=== PATIENT | female | born 2000 | race Caucasian/White ===

== ENCOUNTER 2025-04-18 09:12 | Outpatient (CLI) | payer BC, SELFPAY ==
--- OUTSIDE RECORDS SUMMARY | 2025-04-18 09:19 | XMS_ITS | Patient Health Record ---
Author Organization [facility] Address [address] [place] [address] Support Name Relationship Address Phone LISSETTE MERCER Emergency Contact Unknown JAMES MERCER Guarantor Unknown [phone] Reason For Referral No Information Medications Medication SIG (Take, Route, Frequency, Duration) Notes Start Date End Date Status Methylphenidate HCl ER 18 MG Oral 10/06/2023 Active ZAKIA FE 10/01 (28) 1 MG-20 MCG (21)/75 MG (7) TABLET *Reorder from JIT Solaire for eRx and Interaction Alerts* 10/06/2023 Active Methylphenidate HCl ER 27 MG Oral 10/06/2023 Active Plan Of Treatment No Information Insurance Providers Payer Name Payer Address Payer Phone Subscriber Number Group Number Insured Name Patient Relationship to Insured Coverage Start Date Coverage End Date [employer] [employer] [address] [place] [address] [id number] FN JEAN MERCER
--- OUTSIDE RECORDS SUMMARY | 2025-04-18 09:19 | XMS_ITS | Clinical Summary ---
Author Organization [facility] Address [address] [place] [address] Care Team Providers Care Auto Club Safety Program Coordinator Name Role Phone Unavailable Primary Care Provider Unavailabl e Social History Tobacco Use Types Packs/Day Years Used Date Smoking Tobacco: Never Assessed Comments Unknown Sex and Gender Information Value Date Recorded Sex Assigned at Not on file Legal Sex Female 1:24 PM PHOTORESIST CONTACT PRINTER Gender Identity Not on file Sexual Orientation Not on file Plan of Treatment Health Maintenance Due Date Last Done Comments Cervical Cancer Screening Pa p Smear (Age 21 to 29) Every 3 Years 2002 Cervical Cancer Screening 2002 Annual Physical 2005 HPV Vaccines (1 - 3-dose series) 2017 Meningococcal B Vaccine (1 o f 2 - Standard) 2018 Hepatitis C 2020 DTaP, Tdap and Td Vaccines ( 1 - Tdap) 2021 Hepatitis B Vaccines (1 of 3 - 19+ 3-dose series) 2021 COVID-19 Vaccine ( - 2023-2 5 season) 2024 Meningococcal Vaccine Aged Out No tiffany maranda eligible based on patient's age to complete this topic Pneumococcal Vaccine: Pediat rics (0 to 5 Years) and At-Risk Patients (6 to 49 Years) Aged Out No longer eligible b ased on patient's age to complete this topic RSV Immunizations Under 20 Months Aged Out No longer eligible based on patient's age to complete this topic
--- OUTSIDE RECORDS SUMMARY | 2025-04-18 09:19 | XMS_ITS | Clinical Summary ---
Author Organization [facility] Address [address] [place] [phone] Phone Care Team Providers Care State Wildlife Officer Name Role Phone Carol Ruiz MD Primary Care Provider Allergies Active Allergy Reactions Criticality Noted Date Comments Cashew Nut Unknown Itching and oral swelling Tree Nuts Swelling Medium 03/17/2018 Lips swell Medications EPINEPHrine 0.3 mg/0.3 mL auto-injection syringeIndicatio ns:Anaphylaxis Inject 0.3 mg into the muscle as instructed. 03/17/2018 Active norethindrone-e. 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 Immunizations Immunization Administration Dates Next Due DTaP 01/05/2008, 3,2002,09/17,2002 HPV9 09/07/2019,07/06/2019 Hep A, Pediatric 04/12/2007,04/21/2006 Hep B, Adolescent or Pediatric 2002,2001,2002 Hib (PRP-D) 07/31/2003, 3,2002,07/04 IPV 01/05/2008, 3,2002,07/04 Influenza, Quadrivalent, Spl it, Preservative Free, Intramuscular 07/06/2019 Influenza, Unspecified 09/10/2005 MMR 04/12/2007,07/31/2003 Meningococcal MCV4P (Menactra) 07/06/2019,2012 Pneumococcal Conjugate PCV 13 04/22/2003 ,2002,2002,07/04 Tdap 04/27/2013 Varicella 04/12/2007,09/10/2005 Surgical History Surgery Date Site/Laterality Comments NO PAST SURGERIES Medical History Medical History Date Comments Acne vulgaris Family History Medical History Relation Name Comments Gastroesophageal Reflux Disease Father Hypertension Father Hypertension Maternal Grandmother Hypertension Mother Migraines Mother Hypertension Paternal Grandmother Migraines Sister Relation Name Status Comments Father Maternal Grandmother Mother Paternal Grandmother Sister Social History Tobacco Use Types Packs/Day Years Used Date Smoking Tobacco: Never Smokeless Tobacco: Never Alcohol Use Standard Drinks/Week Comments Never 0 (1 standard drink = 0.6 oz pur e alcohol) AUDIT-C Answer Date Recorded Q1: How often do you have a drink containing alc ohol? Never 2022 Average Number of Drinks Not on file 022 Frequency of Binge Drinking Not on file 04/12 PHQ-2 Answer Date Recorded PHQ-2 Total Score (If total score is 3 or more points, staff should administer the PHQ-9) 1 07/22/2022 Comments No Sex and Gender Information Value Date Recorded Sex Assigned at Not on file Legal Sex Female 11:52 AM BUTTON DECORATING MACHINE OPERATOR Gender Identity Female 2022 8:13 AM CDT Sexual Orientation Not on file Obstetrics History Last Filed Vital Signs Vital Sign Reading Time Taken Comments Blood Pressure 110/73 07/22/2022 3:45 PM BUTTON DECORATING MACHINE OPERATOR Pulse 84 07/22/2022 3:45 PM BUTTON DECORATING MACHINE OPERATOR Temperature - - Respiratory Rate 12 2022 8:17 AM CDT Oxygen Saturation - - Inhaled Oxygen Concentration - - Weight 49.4 kg (109 lb) 07/22/2022 3:45 PM BUTTON DECORATING MACHINE OPERATOR Height 162.6 cm (5' 4) 07/22/2022 3:45 PM BUTTON DECORATING MACHINE OPERATOR Body Mass Index 18.71 07/22/2022 3:45 PM BUTTON DECORATING MACHINE OPERATOR Plan of Treatment Health Maintenance Due Date Last Done Comments Cervical Cancer Screening 2002 Hepatitis C Screening 2002 Meningococcal B Vaccine (1 o f 2 - Standard) 2018 HPV Vaccines (3 - 3-dose series) 01/05/2020 09/07/20 19, 07/06/2019 Regular Well Visit/Exam 18-64 2023 2022 DTaP/Tdap/Td Vaccine (7 - Td or Tdap) 04/27/2023 04/27/2013, 01/05/2008, 07/31/2003, Additional history exists Depression Screening 07/22/2023 07/22/2022, 07/22/2022, 2022 Covid-19 Vaccine (2023-2 5 season) 2024 01/02/2021, 12/15/2020 Influenza Vaccine (#1) 2025 07/06/2019, 2004 Hepatitis B Screening Completed 2002 , 2002, 2002 Pneumococcal vaccine <65 Completed 003, 2002, 2002, Additional history exists Varicella Vaccines Completed 04/12/2007, 09/10/2005 Insurance [facility] ABS CHOICE ANTHEM ACCESS CHOICE ANTHEM ACCESS CHOICE Care Teams State Wildlife Officer Relationship Specialty Start Date End Date Carol Ruiz MD PCP - General Family Practice 04/20/22
--- OUTSIDE RECORDS SUMMARY | 2025-04-18 09:19 | XMS_ITS | Clinical Summary ---
Author Organization [facility] Address [address] [place] [address] Care Team Providers Care Air Reduction Equipment Operator Name Role Phone Rosa Arias MD Primary Care Provider [phone] Source Comments [facility],non-owned Affiliates and Associated Physician Practices is amultiple site organization consisting of ambulatory clinics and hospital sitesin [place], [place], [place] and [place]. This disclosure is being madepursuant to the Care Everywhere program and may not contain all information available regarding this patient. Last updated 18.[facility] Allergies Active Allergy Reactions Criticality Noted Date Comments Anacardium Occidentale Oil 0 Tree Nuts Swelling 03/17/2018 Lips swell Medications * Be aware that medications may not be up to date on this document. Alwaysverify current medications with the patient. 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 (F LUZONE; FLULAVAL; FLUARIX; AFLURIA QUADRIVALENT; 6MO+), 0.5 ML (IIV4) 07/06/2019 MENINGOCOCCAL ACWY (MCV4P) VAC IM 07/06/2019, MMR 04/12/2007,07/31/2003 PNEUMOCOCCAL CONJ, PEDS 04/22/2003,10/31,2002,07/04 POLIO IPV 01/05/2008, 3,2002,07/04 TDAP (7yrs+) 04/27/2013 VARICELLA 04/12/2007,09/10/2005 Family History Medical History Relation Name Comments Hypertension Father Hypertension Maternal Grandmother Hypertension Mother Hypertension Paternal Grandmother Relation Name Status Comments Father Maternal Grandmother Mother Paternal Grandmother Social History Tobacco Use Types Packs/Day Years Used Date Smoking Tobacco: Never Smokeless Tobacco: Never Alcohol Use Standard Drinks/Week Comments Not Asked 0 (1 standard drink = 0.6 oz pur e alcohol) Comments No Sex and Gender Information Value Date Recorded Sex Assigned at Not on file Legal Sex Female 6:43 AM GENERAL OFFICE DISPATCHER Gender Identity Not on file Sexual Orientation Not on file Last Filed Vital Signs Vital Sign Reading Time Taken Comments Blood Pressure 120/74 07/06/2019 1:16 PM CDT Pulse 82 07/06/2019 1:16 PM CDT Temperature 36.6 C (97.9 F) 09/07/2019 9:10 AM GENERAL OFFICE DISPATCHER Respiratory Rate - - Oxygen Saturation - - Inhaled Oxygen Concentration - - Weight 46.7 kg (103 lb) 07/06/2019 1:16 PM CDT Height 163.2 cm (5' 4.25) 07/06/2019 1:16 PM CD T Body Mass Index 17.54 07/06/2019 1:16 PM CDT Plan of Treatment Health Maintenance Due Date Last Done Comments HIV SCREENING 2017 CHLAMYDIA/GONORRHEA SCREENING 2018 MENINGOCOCCAL (Group B) VACC INE SHARED DECISION-MAKING (1 of 2 - Standard) 2018 HEPATITIS C SCREENING 04/21/2020 DTAP/TDAP/TD VACCINES (7 - T d or Tdap) 04/27/2023 04/27/2013, 01/05/2008, 07/31/2003, Additional history exists COVID-19 VACCINE (1 - 2023-2 5 season) 2024 DEPRESSION SCREENING 09/12/2024 INFLUENZA VACCINE (#1) 2025 07/06/2019, 2004 ZOSTER VACCINE (1 of 2) 2052 HEPATITIS B VACCINE Completed 2002, 2002, 2002 PNEUMOCOCCAL VACCINE Completed 04/22/2003, 2002, 2002, Additional history exists HIB VACCINE Completed 07/31/2003, 10/13, 2002, Additional history exists MENINGOCOCCAL GROUPS A/C/Y/W VACCINE Completed 07/06/2019, 04/27/2013 HPV VACCINE Discontinued 09/07/2019, 07/06/2019 Goals Goal Patient Goal Type Associated Problems Recent Progress Patient-Stated? Author Use safety retraint in car Lifestyle On track( 019 9:10 AM GENERAL OFFICE DISPATCHER) Britney Alvarez RN Insurance ANTH Care Teams Air Reduction Equipment Operator Relationship Specialty Start Date End Date Rosa Arias MD PCP - General Pediatrics 03/12/14
--- OUTSIDE RECORDS SUMMARY | 2025-04-18 09:19 | XMS_ITS | Continuity of Care Document ---
Author Organization [facility] Address [address] [place] [address] Phone Care Team Providers Care Hot Mix Operator Name Role Phone Courtney Hamilton MD Unavailable Unavailable Medications Medication Instructions Dosage Effective Dates (start - stop) Status Comments TWINJECT 0.15/0.15 ML .15 DIRECTE - Active Please fill with the [place] Advance Directives Directive Yes / No Effective Date File Name No Information Encounters Encounter Description Practice Location Reason(s) For Visit Diagnoses Date Provider Providers Copied on Encounter [facility], [address], [place], [place], [id number], tel:[phone] [facility] No Information 3 Joy Valdez. [address], [facility] [address], [place], [place], [id number]. tel:[phone] [facility], [address], [place], [place], [id number], tel:[phone] Conversion Department No Information 1 Conversion Doctor. [address] [place] [address], [address], . Family History Family Member Type Diagnosis Age At Onset No Information Payers Payer name Insurance type Covered libertarian ID Authoriza tion(s) No Information Social History Type Description Quantity Date Captured Comments Sex Female Smoking Status No Information Chief Complaint And Reason For Visit No Information Reason For Referral Reason For Referral No Information History Of Present Illness Encounter Date Complaint History Of Prese nt Illness No Information Functional Status Date Functional Assessmen t No Information Instructions Date Instruction Additional Infor mation No Information Assessments Type Assessment Date No Information Patient Care Teams Name Effective Dates (start - stop) Status Members No Information
--- OUTSIDE RECORDS SUMMARY | 2025-04-18 09:19 | XMS_ITS | Continuity of Care Document ---
Author Organization [facility] Address [address] [facility] [address] [place] [address] Phone Care Team Providers Care Director Of Player Personnel Name Role Phone Frankie Tate MD Unavailable Unavailable Allergies, Adverse Reactions, Alerts Substance Reaction Status Criticality No Known Allergies Active No Inform ation Medications Medication Instructions Dosage Effective Dates (start - stop) Status Comments Zyrtec 10 mg tablet take 1 tablet by ora l route every 2 days 10 MG - Active EpiPen 2-Canelo 0.3 mg/0.3 mL injection, auto-injector inject 0.3 milliliter by intramuscular route once as needed for anaphylaxis 0.3 MG - Active Procedures Procedure Date Ingestion Challenge Testing -First 2 Hrs Ingestion Challenge Testing-each Additio nal Hours Est (Level 4) OFFICE/OUTPATIENT VISIT Ju Est (Level 3) OFFICE/OUTPATIENT VISIT Ma PREVENTIVE COUNSELING, INDIV New (Level 4) OFFICE/OUTPATIENT VISIT Ap r Advance Directives Directive Yes / No Effective Date File Name No Information Encounters Encounter Description Practice Location Reason(s) For Visit Diagnoses Date Provider Providers Copied on Encounter [facility], [address] [facility] [address], [place], [place], [id number], [place] tel:[phone] [facility] No Information 0 Bebeto David. [address] [place] [address] [address], [place], [place], [id number] , . tel:[phone] Referring Provider: Rosa Arias [address] [place] [address], [place], [address] . tel:[phone] Est (Level 4) OFFICE/OUTPA TIENT VISIT [facility], [address] [place] [address], [address] [place] [address], tel:[phone] [facility] [place] (chief complaint) Other adverse food reaction, subsequent encounterAllergy to nut other than peanut 0 Jarvis [facility] Augusto. [address] [facility], [facility] [address] [facility] [address], [place], [address], [place]. tel:[phone] Referring Provider: Rosa Arias, [address] [place] [address], [address] . tel:[phone] Est (Level 3) OFFICE/OUTPA TIENT VISIT [facility], [address] [place] [address], [address] [place] [address], tel:[phone] [facility] food allergy (chief complaint) Other adverse food reaction, subsequent encounterAllergy to nut other than peanut 0 Bebeto David. [address] [place] [address], [id number] , . tel:[phone] Referring Provider: Rosa Arias [address] [place] [address], [address] . tel:[phone] [facility], [address] [place] [address], [id number], tel:[phone] [facility] No Information 0 Michele Christie. [address] [place] [address], [facility] [address], [place], [id number] , . tel:[phone] Referring Provider: Rosa Arias [address] [place] [address], [place], [address] . tel:[phone] New (Level 4) OFFICE/OUTPA TIENT VISIT [facility], [address] [facility] [address], [place], [place], [id number], [place] tel:[phone] [facility] allergy symptoms (chief complaint) Other adverse food reaction, initial encounterAllergy to nut other than peanut Apr-3 0202 0 Bebeto David. [address] [facility], [address], [place], [place], [id number] , [place]. tel:[phone] Referring Provider: Rosa Arias, [address], [place], [address] . tel:[phone] Family History Family Member Type Diagnosis Age At Onset Father Problem Allergies, environmental Cousin Problem Allergies, food Payers Payer name Insurance type Covered green party ID Authorluciana beltre(s) [facility] [id number] Social History Type Description Quantity Date Captured Comments Alcohol Use Details Unknown Caffeine Use Details Unknown Tobacco Use Status No Information Smoking Status No Information Sex Female Chief Complaint And Reason For Visit No Information Reason For Referral Reason For Referral No Information History Of Present Illness Encounter Date Complaint History Of Prese nt Illness food allergy LV: 02/04/2020Mol sofi has a history of allergic rhinitis as well as reactions (oral itching) from cashew and pistachio. She had ImmnoCAPs drawn on 02/07/2020. She is interested in joining the and mom has inquired about OIT for cashew. She has an EpiPen but has never used one. She reports that her seasonal allergy symptoms were only mild this year. She presents today for an oral food challenge to cashew.Labs 02/07/2020Cashew IgE: 0.71Ana o 3: 0.33Cashew reaction history:When she was 6 years old she was eating a handful of cashews. She had her first reaction. Mom describes that she told her dad that her throat was itchy. It looked like her lips were a little swollen. She had no other symptoms. Mom gave her some Benadryl and watched her. She had no other symptoms. A week later she saw an phone representative, Dr. Reese Carrillo. He did skin tests to tree nuts and peanut. She had a positive skin test to cashew. Mom recalls that she did not react to any other tree nuts. He prescribed an EpiPen.. After that she only avoided cashews. She has had the same kind of reaction with pistachios. She gets a weird feeling and nausea and itching in her mouth from pistachios. That occurred about 3 years ago. She now avoids pistachio. Her next exposure to cashew was last year. She had some cashew accidentally in a candy bar. She had an itchy mouth and was given Benadryl. She has also had an itchy mouth with pesto made with cashew.Gets nauseous, has lip swelling- with granola bar. food allergy [facility]. She has a history of allergic rhinitis as well as reactions (oral itching) from cashew and pistachio. She has not had recent testing. She is interested in joining [employer] and mom has inquired about OIT for cashew. She returns today for Immunocap testing. She has no questions today. She has EpiPen but has never used one and has some uncertainty about when and how to use one .She reports that seasonal allergy symptoms were only mild this year. allergy symptoms This visit take s place over tele[employer] video platform (Andro[employer].[email or web address]) with the patient in their homeWhen she was 6 years old she was eating a handful of cashews. She had her first reaction. Mom describes that she told her dad that her throat was itchy. It looked like her lips were a little swollen. She had no other symptoms. Mom gave her some Benadryl and watched her. She had no other symptoms. A week later she saw an phone representative, Dr. Reese Carrillo. He did skin tests to tree nuts and peanut. She had a positive skin test to cashew. Mom recalls that she did not react to any other tree nuts. He prescribed an EpiPen.. After that she only avoided cashews. She has had the same kind of reaction with pistachios. She gets a weird feeling and nausea and itching in her mouth from pistachios." That occurred about 3 years ago. She now avoids pistachio. Her next exposure to cashew was last year. She had some cashew accidentally in a candy bar. She had an itchy mouth and was given Benadryl. She has also had an itchy mouth with pesto made with cashew. She has had oral itching from raw cherries and raw apple. She has eaten them since without symptoms. She has had some mild ocular itching in the spring when outdoors and exposed to tree pollenShe has no history of asthma.She is interested in joining the . Mom has spoken with the technical sourcing recruiter. She might be interested in the [employer]. Mom is aware of OIT. Functional Status Date Functional Assessmen t No Information Instructions Date Instruction Additional Infor manuel No Information Assessments Type Assessment Date No Information Patient Care Teams Name Effective Dates (start - stop) Status Members No Information
[2025-04-18 09:47] LABS: Hematocrit 41.0 % (37.0-47.0); Hemoglobin 13.6 g/dL (12.0-15.0); Immature Granulocyte Percent A 0.3 % (0-0.5); Lymphocytes Absolute Auto 2.18 K/mm3 (0.9-3.2); Mean Corpuscular HGB Conc 33.2 g/dl (32-36); Mean Corpuscular Hemoglobin 29.0 pg (26-34); Mean Corpuscular Volume 87.4 fl (80-100); Nucleated Red Blood Cells Absolute Auto 0.000 K/mm3 (0.0-0.012); Nucleated Red Blood Cells Perc 0.0 % (0.0-0.2); Platelet Count Result 204 k/mm3 (150-375); Red Blood Count 4.69 M/mm3 (4.2-5.4); White Blood Count 7.6 K/mm3 (4.5-10.0)
[2025-04-18 10:05] LABS: Alanine Aminotransferase 12 U/L (6-35); Albumin Level 4.5 g/dL (3.5-5.1); Alkaline Phosphatase 63 U/L (38-126); Anion Gap 7 mmol/L (4-12); Aspartate Amino Transferase 24 U/L (14-36); Bilirubin,Total 0.9 mg/dL (0.2-1.3); Blood Urea Nitrogen 17 mg/dL (7-17); Calcium 9.2 mg/dL (8.4-10.2); Carbon Dioxide 25 mmol/L (22-30); Chloride 104 mmol/L (98-107); Estimated Glomerular Filt Rate > 60; Glucose 82 mg/dL (65-110); Potassium 4.1 mmol/L (3.4-5.0); Sodium 136 mmol/L (137-145); Total Protein 7.6 g/dL (6.3-8.2)
[2025-04-18 10:51] LABS: Thyroid Stimulating Hormone 1.010 uIU/mL (0.465-4.680)
== END 2025-04-18 09:13 | disposition home or self-care (01) ==
PROVIDERS: PCP Family Medicine; Visit Provider Family Medicine
DX: Z00.00 Encounter for general adult medical examination without abnormal findings (principal); F98.8 Other specified behavioral and emotional disorders with onset usually occurring in childhood and adolescence; R51.9 Headache, unspecified
CPT/HCPCS: 36415; 80053; 84443; 85025